=== PATIENT | female | born 1935 | race Caucasian/White ===

== ENCOUNTER 2018-07-17 14:30 | Emergency (ER) | payer MEDICARE, BC ==
[~2018-07-17] VITALS: Ht 172.7 cm; Wt 90.7 kg
[2018-07-17 14:37] VITALS: BP 131/67
[2018-07-17] MEDS ORDERED: LIDOCAINE 1% (LOCAL ANESTH.) PF 5ml SDV ID ONE (16:30)
[2018-07-17] MEDS ORDERED: LIDOCAINE W/ EPINEPHRINE 1% 20ML VIAL ONE (16:32)
== END 2018-07-17 17:38 | disposition home or self-care (01) ==
LOC: ER 14:30
DX: S01.01XA Laceration without foreign body of scalp, initial encounter (principal); S16.1XXA Strain of muscle, fascia and tendon at neck level, initial encounter; S40.011A Contusion of right shoulder, initial encounter; S80.01XA Contusion of right knee, initial encounter; M10.9 Gout, unspecified; I10 Essential (primary) hypertension; E07.9 Disorder of thyroid, unspecified; Z86.73 Personal history of transient ischemic attack (TIA), and cerebral infarction without residual deficits; Z90.710 Acquired absence of both cervix and uterus; Z88.0 Allergy status to penicillin; W01.198A Fall on same level from slipping, tripping and stumbling with subsequent striking against other object, initial encounter; Y93.89 Activity, other specified; Y99.8 Other external cause status; Y92.89 Other specified places as the place of occurrence of the external cause
CPT/HCPCS: 12002; 70450; 72125; 73030; 73502; 73562; 93005